=== PATIENT | female | born 1965 | race Caucasian/White ===

== ENCOUNTER 2021-10-22 07:31 | Outpatient (REF) | payer OTHER, SELFPAY ==
[2021-10-22 11:12] LABS: MANUAL DIFF FLAG NO
[2021-10-22 11:18] LABS: Basophils Percent Auto 0.7 % (0-2); Eosinophils Absolute Auto 0.2 X10*3/uL (0.0-0.4); Eosinophils Percent Auto 3.4 % (0-4); Hematocrit 40.9 % (37.0-47.0); Hemoglobin 13.4 g/dl (12.0-16.0); Imm Gran Abs Auto 0.01 X10*3/uL (0.00-0.03); Imm Gran Pct Auto 0.2 % (0.0-0.4); Lymphocytes Absolute Auto 1.7 X10*3/uL (1.2-4.9); Lymphocytes Percent Auto 28.4 % (20-40); Mean Corpuscular HGB Conc 32.8 g/dl (31.0-35.0); Mean Corpuscular Hemoglobin 29.1 pg (27.0-33.0); Mean Corpuscular Volume 88.9 fL (80.0-98.0); Mean Platelet Volume 11.6 fL (9.4-12.3); Monocytes Absolute Auto 0.4 X10*3/uL (0.1-1.2); Monocytes Percent Auto 6.4 % (2-11); Neutrophils Absolute Auto 3.6 x10*3/uL (2.0-8.3); Neutrophils Percent Auto 60.9 % (45-73); Platelet Count 205 X10*3/uL (160-400); Red Cell Distribution Width 13.2 % (11.0-16.0); White Blood Count 5.8 X10*3/uL (4.8-10.8)
[2021-10-22 11:31] LABS: Alanine Aminotransferase 14 U/L (0-31); Albumin Level 4.3 g/dL (3.5-5.0); Alkaline Phosphatase 54 U/L (39-117); Anion Gap 15 (12-20); Aspartate Amino Transferase 12 U/L (5-31); Bilirubin Total 0.7 mg/dL (0.0-1.0); Blood Urea Nitrogen 15 mg/dL (9-16); Calcium 9.2 mg/dL (8.4-10.2); Carbon Dioxide 24 mmol/L (22-29); Chloride 104 mmol/L (96-108); Cholesterol 242 mg/dL; Estimated Glomerular Filt Rate > 60; Glucose Fasting 92 mg/dL (60-99); HDL Cholesterol 71 mg/dL; LDL Cholesterol Calculated 154 mg/dl; Sodium 139 mmol/L (135-145); Total Protein 7.1 g/dL (6.5-8.0); Triglycerides 86 mg/dL
[2021-10-22 11:55] LABS: TSH reflex Free T4 2.25 uIU/mL (0.32-4.0)
== END 2021-10-22 07:32 | disposition home or self-care (01) ==
LOC: HO.HMGCLDS 07:31
PROVIDERS: Visit Provider Internal Medicine
DX: Z00.01 Encounter for general adult medical examination with abnormal findings (principal); G43.109 Migraine with aura, not intractable, without status migrainosus
CPT/HCPCS: 36415; 80053; 80061; 84443; 85025

== ENCOUNTER 2023-06-23 10:11 | Outpatient (AMB) | payer OTHER, SELFPAY ==
--- NOTE | 2023-06-23 10:15 | A.OFFPC_ITS ---
Vital Signs 06/23/23 10:18 Height 5 ft 7 in Weight 142 lb 2 oz BMI 22.3 BP 138/82 Blood Pressure Location Rt brachial Position Sitting Pulse 76 Pulse Source Pulse Oximeter Pulse Oximetry (%) 100 Oxygen Delivery Method Room Air Intake Visit Reasons: Annual PE Allergies none Allergy (Unknown, Uncoded 11/29/19 00:00) Medication List - Last Reconciled 06/23/23 by Amna Contreras MD magnesium oxide 400 mg PO DAILY nfjympgp-vqe-daazl acid-vit K 400-80 mcg caps PO sumatriptan succinate 50 mg PO DAILY PRN 90 days vitamin B complex (B-Complex tablet) 1 tab PO DAILY Tobacco use date assessed: 06/23/23 Dental Screening Dental Screen Date: 06/23/23 Did you have a dental visit in the last 12 months?: Yes Did you have a dental problem in the last 6 months where you did not have access to dental care?: No Was dental information given to patient?: Patient has dentist HPI Annual PE HPI Details Patient is a 57-year-old female came in today for physical examination Mammogram is up-to-date April of this year She has OBGYN Dr. Haley, [facility]. Pap smear is through them. Colonoscopy was when she was 53 years old 2019 at [facility] next 1 will be in 2028 Headaches are stable Tetanus is up-to-date Patient is complaining of feeling of something stuck in her throat which is constant and has been there for the past 2 months On examination there is no swelling no erythema in her throat However she tells me that she does feel that she has acid reflux. She also constantly clear her throat. We talked about dietary restrictions like avoiding spicy foods and avoiding alcohol altogether. I am starting her on omeprazole 20 mg she is to continue that for at least a month and then get back to me to update me. Other than that patient is healthy she exercise regularly however since the menopause she is having difficulty sleeping at least 2 times a week but she does not want to take any medications. Follow-up 1 year for physical exam, 4 weeks to update on throat problem PFSH Family History Other Mental health disorder Substance use disorder Social History Housing: Condominium Patient Tobacco Use Status: Never used Tobacco e-Cigarette/Vaping Use: Never Used Current occupational status: employed Cognitive needs: No Hearing needs: No Vision needs: No Questionnaire PHQ-9 Over the last 2 weeks, how often have you been bothered by any of the following problems? 1. Little interest or pleasure in doing things: not at all 2. Feeling down, depressed, or hopeless: not at all 3. Trouble falling or staying asleep, or sleeping too much: nearly every day 4. Feeling tired or having little energy: more than half the days 5. Poor appetite or overeating: not at all 6. Feeling bad about yourself - or that you are a failure or have let yourself or your family down: not at all 7. Trouble concentrating on things, such as reading the newspaper or watching television: not at all 8. Moving or speaking so slowly that other people could have noticed. Or the o pposite - being so fidgety or restless that you have been moving around a lot more than usual: not at all 9. Thoughts that you would be better off or of hurting yourself in some way: not at all Total score: 5 Depression Screening Interpretation: Negative 84457 - PHQ-9 Billing: Yes Source: Developed by Drs. Preston Landa, Carmencita Rowan, Parker Loyd and colleagues, with an educational tylor from [employer]. Thrive Questionnaire Date Thrive assessed: 09/29/21 I am a: Patient What is your living situation today?: I have a steady place to live Within the past 12 months, did the food you bought not last and you didn't have the money to get more?: Never true Within the past 12 months, did you worry whether your food would run out before you got money to buy more?: Never true Do you have trouble paying for medicines?: No Do you have trouble getting transportation to medical appointments?: No Do you have trouble paying your heating and electricity bill?: No Do you have trouble taking care of your child, family member or friend?: No Do you have trouble with day-to-day activities such as bathing, preparing meals, shopping, managing finances, etc.?: No Are you currently unemployed and looking for a job?: No Are you interested in more education?: No JULIETA-7 AMB Questionnaire JULIETA-7 Date JULIETA - 7 assessed: 06/23/23 Feeling nervous, anxious, or on edge: 0 = Not at all Not being able to stop or control worryin = Not at all Worrying too much about different things: 0 = Not at all Trouble relaxin = Not at all Being so restless that it is hard to sit still: 0 = Not at all Becoming easily annoyed or irritable: 1 = Several days Feeling afraid as if something awful might happen: 0 = Not at all Total JULIETA-7 score (0-4 normal; 5-9 mild; 10-14 moderate; 15-21 severe): 1 Source: Developed by Drs. Preston Landa, Carmencita Rowan, Parker Loyd and colleagues, with an educational tylor from [employer]. JULIETA-7 Assessment Billing JULIETA-7 Assessment Tool: JULIETA-7 Assessment 49554 Review of Systems Const Denies chills, Denies fever(s) and Denies headache(s) Eyes Denies blurry vision ENT Denies headache(s), Denies nasal discharge, Denies nasal obstruction, Denies odynophagia and Denies sinus pain Card Denies chest pain at rest and Denies chest pain with activity Resp Denies cough and Denies hemoptysis GI Denies diarrhea, Denies odynophagia, Denies vomiting and Denies hematemesis Reports as per HPI Musc Denies abnormal gait Skin/Breast Reports as per HPI Neuro Denies Neuro-related abnormal movements, Denies Abnormal speech present, Denies abnormal gait, Denies headache(s) and Denies Sensory deficit (Neuro) Psych Denies mood swings and Denies paranoia Endo Reports as per HPI Priyank/Lymph Reports as per HPI Aller/Immun Reports as per HPI Physical exam (Primary Care) Vital Signs: Last Vital Signs Pulse 76 06/23/23 10:18 BP 138/82 06/23/23 10:18 Pulse Ox 100 06/23/23 10:18 Oxygen Delivery Method Room Air 06/23/23 10:18 BMI result Body Mass Index 22.3 Tobacco/Smoking Status: Tobacco use Status Tobacco use date assessed 06/23/23 06/23/23 10:23 Patient Tobacco Use Status Never used Tobacco 06/23/23 10:23 e-Cigarette/Vaping Use Never Used 06/23/23 10:23 PHQ-9: PHQ-9 Score PHQ-9: Total score 5 06/23/23 10:53 Depression Screening Interpretation: Negative Thrive Assessment: Date of Thrive Assessment Date Thrive assessed 09/29/21 06/23/23 10:53 Const General: cooperative, comfortable and no acute distress Orientation/consciousness: patient oriented x3 HENMT Head: Yes normocephalic and Yes atraumatic Eyes General: appearance normal, both eyes and all related structures Pupils: Equal, round and reactive pupils present EOM: EOMs intact bilaterally Neck Neck: Yes supple and No lymphadenopathy Thyroid: Thyroid normal Lymphatic: no lymphadenopathy noted Resp Effort & Inspection: normal respiratory effort and able to speak in complete sentences Auscultation: clear to auscultation bilaterally Cardio Heart sounds: S1 normal heart sound present and S2 normal heart sound present GI Palpation (GI): Soft to palpation and nontender Auscultation: normal bowel sounds General: Yes no CVA tenderness Back/Spine/Pelvis Back: no CVA tenderness Skin General skin exam: elasticity normal and turgor normal Neuro General: patient oriented x3 and gait normal Cranial nerves: Yes Equal, round and reactive pupils present Speech: No Abnormal speech present Sensory Exam: No Sensory deficit (Neuro) Coordination: tandem gait normal and Romberg test negative Extrem General: Yes normal exam except as noted and No edema Assessment and Plan Assessment & Plan (1) Encounter for general adult medical examination with abnormal findings: Code(s): Z00.01 - Encounter for general adult medical examination with abnormal findings (2) Tired: Code(s): R53.83 - Other fatigue (3) Migraine headache with aura: Code(s): G43.109 - Migraine with aura, not intractable, without status migrainosus Qualifiers: Intractability: intractable Status migrainosus presence: without status migrainosus Qualified Code(s): G43.119 - Migraine with aura, intractable, without status migrainosus (4) Menopausal state: Code(s): N95.1 - Menopausal and female climacteric states (5) Difficulty sleeping: Code(s): G47.9 - Sleep disorder, unspecified (6) Difficulty swallowing: Code(s): R13.10 - Dysphagia, unspecified Qualifiers: Dysphagia type: oropharyngeal phase Qualified Code(s): R13.12 - Dysphagia, oropharyngeal phase Plan Patient is a 57-year-old female came in today for physical examination Mammogram is up-to-date April of this year She has OBGYN Dr. Haley, [facility]. Pap smear is through them. Colonoscopy was when she was 53 years old 2019 at [facility] next 1 will be in 2028 Headaches are stable Tetanus is up-to-date Patient is complaining of feeling of something stuck in her throat which is constant and has been there for the past 2 months On examination there is no swelling no erythema in her throat However she tells me that she does feel that she has acid reflux. She also constantly clear her throat. We talked about dietary restrictions like avoiding spicy foods and avoiding alcohol altogether. I am starting her on omeprazole 20 mg she is to continue that for at least a month and then get back to me to update me. Other than that patient is healthy she exercise regularly however since the menopause she is having difficulty sleeping at least 2 times a week but she does not want to take any medications. Follow-up 1 year for physical exam, 4 weeks to update on throat problem Orders: Orders Complete Blood Count Auto Diff Today G43.109 - Migraine with aura, not intractable, without status migrainosus, G47.9 - Sleep disorder, unspecified, N95.1 - Menopausal and female climacteric states, R53.83 - Other fatigue, Z00.01 - Encounter for general adult medical examination with abnormal findings Comprehensive [place]. Panel Fast Today G43.109 - Migraine with aura, not intractable, without status migrainosus, G47.9 - Sleep disorder, unspecified, N95.1 - Menopausal and female climacteric states, R53.83 - Other fatigue, Z00.01 - Encounter for general adult medical examination with abnormal findings Lipid Panel Today G43.109 - Migraine with aura, not intractable, without status migrainosus, G47.9 - Sleep disorder, unspecified, N95.1 - Menopausal and female climacteric states, R53.83 - Other fatigue, Z00.01 - Encounter for general adult medical examination with abnormal findings Vitamin D 25-OH (D2 and D3) Today G43.109 - Migraine with aura, not intractable, without status migrainosus, G47.9 - Sleep disorder, unspecified, N95.1 - Menopausal and female climacteric states, R53.83 - Other fatigue, Z00.01 - Encounter for general adult medical examination with abnormal findings Vitamin B12 Today G43.109 - Migraine with aura, not intractable, without status migrainosus, G47.9 - Sleep disorder, unspecified, N95.1 - Menopausal and female climacteric states, R53.83 - Other fatigue, Z00.01 - Encounter for general adult medical examination with abnormal findings TSH reflex Free T4 Today G43.109 - Migraine with aura, not intractable, without status migrainosus, G47.9 - Sleep disorder, unspecified, N95.1 - Menopausal and female climacteric states, R53.83 - Other fatigue, Z00.01 - Encounter for general adult medical examination with abnormal findings Medications: New omeprazole 20 mg PO DAILY 90 caps 0RF Refilled sumatriptan succinate 50 mg PO DAILY PRN 30 tabs 1RF migraine headache 90 days Coding Level of Care Code Est Pt Prev Care 40-64y(88363) Diagnoses Encounter for general adult medical examination with abnormal findings Z00.01 Tired R53.83 Intractable migraine with aura without status migrainosus G43.119 Intractability: intractable Status migrainosus presence: without status migrainosus Menopausal state N95.1 Difficulty sleeping G47.9 Oropharyngeal dysphagia R13.12 Dysphagia type: oropharyngeal phase Additional Codes JULIETA-7 Assessment Billing - JULIETA-7 Assessment Tool: JULIETA-7 Assessment [id number] ([id number])
[2023-06-23 10:18] VITALS: BP 138/82; PULSE 76; O2SAT 100; BMI 22.3
== END 2023-06-23 10:47 | disposition home or self-care (01) ==
PROVIDERS: PCP Internal Medicine; Visit Provider Internal Medicine
DX: Z00.01 Encounter for general adult medical examination with abnormal findings (principal); R53.83 Other fatigue; G43.119 Migraine with aura, intractable, without status migrainosus; N95.1 Menopausal and female climacteric states; G47.9 Sleep disorder, unspecified; R13.12 Dysphagia, oropharyngeal phase
CPT/HCPCS: 99396

== ENCOUNTER 2023-07-11 07:23 | Outpatient (REF) | payer OTHER, SELFPAY ==
[2023-07-11 11:33] LABS: MANUAL DIFF FLAG NO
[2023-07-11 11:52] LABS: Basophils Absolute Auto 0.1 X10*3/uL (0.0-0.2); Basophils Percent Auto 1.1 % (0-2); Eosinophils Absolute Auto 0.2 X10*3/uL (0.0-0.4); Eosinophils Percent Auto 4.5 % (0-4); Hematocrit 41.8 % (37.0-47.0); Hemoglobin 13.6 g/dl (12.0-16.0); Imm Gran Abs Auto 0.01 X10*3/uL (0.00-0.03); Imm Gran Pct Auto 0.2 % (0.0-0.4); Lymphocytes Absolute Auto 1.9 X10*3/uL (1.2-4.9); Lymphocytes Percent Auto 41.3 % (20-40); Mean Corpuscular HGB Conc 32.5 g/dl (31.0-35.0); Mean Corpuscular Hemoglobin 29.4 pg (27.0-33.0); Mean Corpuscular Volume 90.3 fL (80.0-98.0); Mean Platelet Volume 11.5 fL (9.4-12.3); Monocytes Absolute Auto 0.3 X10*3/uL (0.1-1.2); Neutrophils Absolute Auto 2.2 x10*3/uL (2.0-8.3); Neutrophils Percent Auto 46.9 % (45-73); Platelet Count 215 X10*3/uL (160-400); Red Blood Count 4.63 X10*6/uL (4.20-5.50); White Blood Count 4.7 X10*3/uL (4.8-10.8)
[2023-07-11 12:36] LABS: Alanine Aminotransferase 19 U/L (0-31); Albumin Level 4.3 g/dL (3.5-5.0); Alkaline Phosphatase 65 U/L (39-117); Anion Gap 14 (12-20); Aspartate Amino Transferase 16 U/L (5-31); Bilirubin Total 0.5 mg/dL (0.0-1.0); Blood Urea Nitrogen 14 mg/dL (9-16); Calcium 9.8 mg/dL (8.4-10.2); Carbon Dioxide 25 mmol/L (22-29); Chloride 105 mmol/L (96-108); Cholesterol 261 mg/dL (<200); Estimated Glomerular Filt Rate > 60; Glucose Fasting 84 mg/dL (60-99); HDL Cholesterol 76 mg/dL (>40); LDL Cholesterol Calculated 167 mg/dL (<100); Sodium 140 mmol/L (135-145); Total Protein 7.3 g/dL (6.5-8.0); Triglycerides 92 mg/dL (<150)
[2023-07-11 12:38] LABS: TSH reflex Free T4 2.96 uIU/mL (0.32-4.0)
[2023-07-11 12:46] LABS: Vitamin B12 631 pg/mL (200-900)
[2023-07-14 13:39] LABS: Vitamin D 25-OH, D2 <4 ng/mL; Vitamin D 25-OH, D3 39 ng/mL; Vitamin D 25-OH, Total 39 ng/mL (30-100)
== END 2023-07-11 07:24 | disposition home or self-care (01) ==
LOC: HO.HMGCLDS 07:23
PROVIDERS: PCP Internal Medicine; Visit Provider Internal Medicine
DX: Z00.01 Encounter for general adult medical examination with abnormal findings (principal); R53.83 Other fatigue; G43.109 Migraine with aura, not intractable, without status migrainosus; N95.1 Menopausal and female climacteric states; G47.9 Sleep disorder, unspecified
CPT/HCPCS: 36415; 80053; 80061; 82306; 82607; 84443; 85025

== ENCOUNTER 2024-07-12 09:52 | Outpatient (AMB) | payer OTHER, SELFPAY ==
--- NOTE | 2024-07-12 09:55 | MHC.PC.OV ---
Vital Signs 07/12/24 09:56 Height 5 ft 7 in Weight 135 lb 4 oz BMI 21.2 BP 138/86 Blood Pressure Location Lt brachial Position Sitting Pulse 71 Pulse Source Pulse Oximeter Pulse Oximetry (%) 98 Oxygen Delivery Method Room Air Intake Visit Reasons: Annual PE Allergies none Allergy (Unknown, Uncoded 07/12/24 09:56) Unknown Medication List - Last Reconciled 07/12/24 by Amna Contreras MD magnesium oxide 400 mg PO DAILY dqxsdhbd-hvt-xrrpa acid-vit K 400-80 mcg caps PO omeprazole 20 mg PO DAILY sumatriptan succinate 50 mg PO DAILY PRN 90 days vitamin B complex (B-Complex tablet) 1 tab PO DAILY Tobacco use date assessed: 07/12/24 Dental Screening Dental Screen Date: 07/12/24 Did you have a dental visit in the last 12 months?: Yes Did you have a dental problem in the last 6 months where you did not have access to dental care?: No Was dental information given to patient?: Patient has dentist HPI Annual PE HPI Details Patient is a 57-year-old female came in today for physical examination Mammogram is up-to-date Dr. Haley, her OBGYN has retired, she needs a new OBGYN Colonoscopy was when she was 53 years old 2019 at [facility] next 1 will be in 2028 Headaches are stable Tetanus is up-to-date Patient has changed her diet and her acid reflux has gotten better She does have a family history of high cholesterol, her LDL was 167 last year I have placed order for repeat labs fasting PFSH Family History Other Mental health disorder Substance use disorder Social History Housing: Condominium Patient Tobacco Use Status: Never used Tobacco e-Cigarette/Vaping Use: Never Used Current occupational status: employed Cognitive needs: No Hearing needs: No Vision needs: No Questionnaire PHQ-9 Over the last 2 weeks, how often have you been bothered by any of the following problems? 1. Little interest or pleasure in doing things: not at all 2. Feeling down, depressed, or hopeless: not at all 3. Trouble falling or staying asleep, or sleeping too much: several days 4. Feeling tired or having little energy: several days 5. Poor appetite or overeating: not at all 6. Feeling bad about yourself - or that you are a failure or have let yourself or your family down: not at all 7. Trouble concentrating on things, such as reading the newspaper or watching television: not at all 8. Moving or speaking so slowly that other people could have noticed. Or the opposite - being so fidgety or restless that you have been moving around a lot more than usual: not at all 9. Thoughts that you would be better off or of hurting yourself in some way: not at all Total score: 2 Depression Screening Interpretation: Negative Depression Screening Done: Yes 62137 - PHQ-9 Billing: Yes Source: Developed by Drs. Preston Landa, Carmencita Rowan, Parker Loyd and colleagues, with an educational tylor from [employer]. Thrive Questionnaire Date Thrive assessed: 07/12/24 I am a: Patient What is your living situation today?: I have a steady place to live Within the past 12 months, did the food you bought not last and you didn't have the money to get more?: Never true Within the past 12 months, did you worry whether your food would run out before you got money to buy more?: Never true Do you have trouble paying for medicines?: I choose not to answer this question Do you have trouble getting transportation to medical appointments?: No Do you have trouble paying your heating and electricity bill?: No Do you have trouble taking care of your child, family member or friend?: No Do you have trouble with day-to-day activities such as bathing, preparing meals, shopping, managing finances, etc.?: No Are you currently unemployed and looking for a job?: No Are you interested in more education?: I choose not to answer this question Please select the resources that you would like help with: None Currently or been in a relationship where the following occur: No concerns reported THRIVE Score: 0 AUDIT C Alcohol Use Questionnaire (AUDIT-C) 1. How often do you have a drink containing alcohol?: 2-4 times a month 2. How many drinks containing alcohol do you have on a typical day when you are drinking?: 1 or 2 3. How often do you have six or more drinks on one occasion?: Never Total Score: 2 Score Reviewed/Action Taken: Yes JULIETA-7 AMB Questionnaire JULIETA-7 Date JULIETA - 7 assessed: 07/12/24 Feeling nervous, anxious, or on edge: 0 = Not at all Not being able to stop or control worryin = Not at all Worrying too much about different things: 0 = Not at all Trouble relaxin = Not at all Being so restless that it is hard to sit still: 0 = Not at all Becoming easily annoyed or irritable: 0 = Not at all Feeling afraid as if something awful might happen: 0 = Not at all Total JULIETA-7 score (0-4 normal; 5-9 mild; 10-14 moderate; 15-21 severe): 0 Source: Developed by Drs. Preston Landa, Carmencita Rowan, Parker Loyd and colleagues, with an educational tylor from [employer]. JULIETA-7 Assessment Billing JULIETA-7 Assessment Tool: JULIETA-7 Assessment 47391 Review of Systems Const Denies chills, Denies fever(s) and Denies headache(s) Eyes Denies blurry vision ENT Denies headache(s), Denies nasal discharge, Denies nasal obstruction, Denies odynophagia and Denies sinus pain Card Denies chest pain at rest and Denies chest pain with activity Resp Denies cough and Denies hemoptysis GI Denies diarrhea, Denies odynophagia, Denies vomiting and Denies hematemesis Reports as per HPI Musc Denies abnormal gait Skin/Breast Reports as per HPI Neuro Denies Neuro-related abnormal movements, Denies Abnormal speech present, Denies abnormal gait, Denies headache(s) and Denies Sensory deficit (Neuro) Psych Denies mood swings and Denies paranoia Endo Reports as per HPI Priyank/Lymph Reports as per HPI Aller/Immun Reports as per HPI Physical exam (Primary Care) Vital Signs: Last Vital Signs Pulse 71 07/12/24 09:56 BP 138/86 07/12/24 09:56 Pulse Ox 98 07/12/24 09:56 Oxygen Delivery Method Room Air 07/12/24 09:56 BMI result Body Mass Index 21.2 Tobacco/Smoking Status: Tobacco use Status Tobacco use date assessed 07/12/24 07/12/24 09:59 Patient Tobacco Use Status Never used Tobacco 07/12/24 09:59 e-Cigarette/Vaping Use Never Used 07/12/24 09:59 PHQ-9: PHQ-9 Score PHQ-9: Total score 2 07/12/24 10:09 Depression Screening Interpretation: Negative Thrive Assessment: Date of Thrive Assessment Date Thrive assessed 07/12/24 07/12/24 09:59 Currently or been in a relationship where the following occur: No concerns reported Const General: cooperative, comfortable and no acute distress Orientation/consciousness: patient oriented x3 HENMT Head: Yes normocephalic and Yes atraumatic Eyes General: appearance normal, both eyes and all related structures Pupils: Equal, round and reactive pupils present EOM: EOMs intact bilaterally Neck Neck: Yes supple and No lymphadenopathy Thyroid: Thyroid normal Lymphatic: no lymphadenopathy noted Chest Breast/axilla palpation: normal palpation of the breasts Resp Effort & Inspection: normal respiratory effort and able to speak in complete sentences Auscultation: clear to auscultation bilaterally Cardio Heart sounds: S1 normal heart sound present and S2 normal heart sound present GI Palpation (GI): Soft to palpation and nontender Auscultation: normal bowel sounds General: Yes no CVA tenderness Back/Spine/Pelvis Back: no CVA tenderness Skin General skin exam: elasticity normal and turgor normal Neuro General: patient oriented x3 and gait normal Cranial nerves: Yes Equal, round and reactive pupils present Speech: No Abnormal speech present Sensory Exam: No Sensory deficit (Neuro) Coordination: tandem gait normal and Romberg test negative Extrem General: Yes normal exam except as noted and No edema Coding Level of Care Code Est Pt Level 3 (24704) Est Pt Prev Care 40-64y(65531) Diagnoses Encounter for general adult medical examination with abnormal findings Lipid disorder E78.9 Additional Codes JULIETA-7 Assessment Billing - JULIETA-7 Assessment Tool: JULIETA-7 Assessment 93132 ([id number]) Assessment & Plan Assessment & Plan (1) Encounter for general adult medical examination with abnormal findings: Code(s): Z00.01 - Encounter for general adult medical examination with abnormal findings Category: Medical (2) Lipid disorder: Code(s): E78.9 - Disorder of lipoprotein metabolism, unspecified Category: Medical Plan Patient is a 57-year-old female came in today for physical examination Mammogram is up-to-date Dr. Haley, her OBGYN has retired, she needs a new OBGYN Colonoscopy was when she was 53 years old 2019 at [facility] next 1 will be in 2028 Headaches are stable Tetanus is up-to-date Patient has changed her diet and her acid reflux has gotten better She does have a family history of high cholesterol, her LDL was 167 last year I have placed order for repeat labs fasting Orders: Orders Complete Blood Count Auto Diff Today E78.9 - Disorder of lipoprotein metabolism, unspecified, Z00.00 - Encounter for general adult medical examination without abnormal findings Lipid Panel Today E78.9 - Disorder of lipoprotein metabolism, unspecified, Z00.00 - Encounter for general adult medical examination without abnormal findings Comprehensive [place]. Panel Fast Today E78.9 - Disorder of lipoprotein metabolism, unspecified, Z00.00 - Encounter for general adult medical examination without abnormal findings Referrals [facility] Referral Z01.419 - Encounter for gynecological examination (general) (routine) without abnormal findings
[2024-07-12 09:56] VITALS: BP 138/86; PULSE 71; O2SAT 98; BMI 21.2
== END 2024-07-12 10:18 | disposition home or self-care (01) ==
PROVIDERS: PCP Internal Medicine; Visit Provider Internal Medicine
DX: Z00.00 Encounter for general adult medical examination without abnormal findings (principal); E78.9 Disorder of lipoprotein metabolism, unspecified

== ENCOUNTER → 2024-07-12 09:52 | Outpatient (BNVA) | payer OTHER, SELFPAY | PROVIDERS: PCP Internal Medicine; Visit Provider Internal Medicine | DX: Z00.01 Encounter for general adult medical examination with abnormal findings (principal); E78.9 Disorder of lipoprotein metabolism, unspecified | CPT/HCPCS: 96127 ==

== ENCOUNTER 2024-08-12 07:15 | Outpatient (REF) | payer OTHER, SELFPAY ==
[2024-08-12 10:02] LABS: MANUAL DIFF FLAG NO
[2024-08-12 10:29] LABS: Basophils Absolute Auto 0.1 X10*3/uL (0.0-0.2); Basophils Percent Auto 1.2 % (0-2); Eosinophils Absolute Auto 0.1 X10*3/uL (0.0-0.4); Eosinophils Percent Auto 3.1 % (0-4); Hematocrit 41.7 % (37.0-47.0); Hemoglobin 13.6 g/dl (12.0-16.0); Imm Gran Abs Auto 0.02 X10*3/uL (0.00-0.03); Imm Gran Pct Auto 0.5 % (0.0-0.4); Lymphocytes Absolute Auto 1.8 X10*3/uL (1.2-4.9); Lymphocytes Percent Auto 42.7 % (20-40); Mean Corpuscular HGB Conc 32.6 g/dl (31.0-35.0); Mean Corpuscular Hemoglobin 29.1 pg (27.0-33.0); Mean Corpuscular Volume 89.1 fL (80.0-98.0); Mean Platelet Volume 11.6 fL (9.4-12.3); Monocytes Absolute Auto 0.3 X10*3/uL (0.1-1.2); Neutrophils Percent Auto 46.5 % (45-73); Platelet Count 216 X10*3/uL (160-400); Red Blood Count 4.68 X10*6/uL (4.20-5.50); Red Cell Distribution Width 12.9 % (11.0-16.0); White Blood Count 4.2 X10*3/uL (4.8-10.8)
[2024-08-12 10:48] LABS: Alanine Aminotransferase 16 U/L (0-31); Albumin Level 4.2 g/dL (3.5-5.0); Alkaline Phosphatase 63 U/L (39-117); Anion Gap 10 (12-20); Aspartate Amino Transferase 18 U/L (5-31); Bilirubin Total 0.5 mg/dL (0.0-1.0); Blood Urea Nitrogen 16 mg/dL (9-16); Calcium 9.6 mg/dL (8.4-10.2); Carbon Dioxide 29 mmol/L (22-29); Chloride 107 mmol/L (96-108); Cholesterol 253 mg/dL (<200); Estimated Glomerular Filt Rate > 60; Glucose Fasting 93 mg/dL (60-99); HDL Cholesterol 75 mg/dL (>40); LDL Cholesterol Calculated 161 mg/dL (<100); Potassium 3.8 mmol/L (3.3-5.1); Sodium 142 mmol/L (135-145); Total Protein 6.9 g/dL (6.5-8.0); Triglycerides 86 mg/dL (<150)
== END 2024-08-12 07:16 | disposition home or self-care (01) ==
LOC: HO.HMGCLDS 07:15
PROVIDERS: PCP Internal Medicine; Visit Provider Internal Medicine
DX: Z00.00 Encounter for general adult medical examination without abnormal findings (principal); E78.9 Disorder of lipoprotein metabolism, unspecified
CPT/HCPCS: 36415; 80053; 80061; 85025

== ENCOUNTER 2025-08-15 09:48 | Outpatient (AMB) | payer OTHER, SELFPAY ==
[2025-08-15 09:51] VITALS: BP 118/72; PULSE 80; O2SAT 98; BMI 21.9
--- NOTE | 2025-08-15 09:51 | A.OFFPC_ITS ---
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: No Accompanied by: Self / Same As Patient Allergies none Allergy (Unknown, Uncoded 08/15/25 09:52) Unknown Medication List - Last Reconciled 08/15/25 by Amna Contreras MD magnesium oxide 400 mg PO DAILY chgeoxwg-axt-vfpca acid-vit K 400-80 mcg caps PO omeprazole 20 mg PO DAILY sumatriptan succinate 50 mg PO DAILY PRN 90 days vitamin B complex (B-Complex tablet) 1 tab PO DAILY Tobacco use date assessed: 08/15/25 Dental Screening Dental Screen Date: 08/15/25 Did you have a dental visit in the last 12 months?: Yes Did you have a dental problem in the last 6 months where you did not have access to dental care?: No Was dental information given to patient?: Patient has dentist HPI HPI Comments History of Present Illness Details History of Present Illness The patient is a 59 year old individual presenting for an annual physical exam. Hyperlipidemia: - The patient has a history of a lipid d isorder with a recent LDL level of 161 mg/dL. - There is a strong family history of pr emature cardiac-related deaths, including the patient's maternal grandfather who in his 50s. - The patient is hesitant to start jaye sterol medication despite prior discussion but has agreed to try taking fish oil. - The patient maintains a healthy diet, including a recent shift to a Mediterranean diet, and engages in regular exercise. Migraine: - The patient has a history of migraine headaches and uses sumatriptan as needed. - The frequency of use is approximately once a week. - The patient requested to continue fill ing the prescription to have it available if needed. Gastroesophageal Reflux Disease (GERD): - The patient has a history of GERD but has stopped taking omeprazole. - The patient now uses Tums as needed fo r symptoms. Tinnitus: - The patient reports persistent tinnitu s, which varies in intensity. - The patient attributes this to a histo ry of exposure to loud music at concerts. - The patient requested a referral for a hearing test. Medical History: - Migraine headaches - Gastroesophageal reflux disease (GERD) - Lipid disorder - Tinnitus - Arthritis of the knees ? Social History: - Alcohol use: Reports consuming 1-2 alc oholic drinks per week. - Diet: Reports eating healthy and has a dopted a Mediterranean diet. - Exercise: Walks every day and practice s yoga once a week. - Risk factors: Reports exposure to loud music from attending concerts, which is a possible cause of tinnitus. Health Maintenance - Last colonoscopy was in 2018, with the next one due in 2028. - Follows with [facility], Dr. Haley, and h as an appointment in September. - Mammogram performed in March was normal after additional imaging of the right breast. - The patient declined the influenza vac cine. - Referral made for a hearing test due t o tinnitus. - Counseled on hyperlipidemia management , including the option of medication and the use of fish oil supplements. - Advised to use mizw-fan-zfe headphones instead of in-ear headphones to prevent worsening tinnitus. - Advised to follow up in one year for a n annual physical exam. [place] of Care The patient sees Dr. Haley for [facility] care. PFSH Family History Other Mental health disorder Substance use disorder Social History Housing: Condominium Patient Tobacco Use Status: Never used Tobacco e-Cigarette/Vaping Use: Never Used Current occupational status: employed Cognitive needs: No Hearing needs: No Vision needs: No Questionnaire PHQ-9 Over the last 2 weeks, how often have you been bothered by any of the following problems? 1. Little interest or pleasure in doing things: not at all 2. Feeling down, depressed, or hopeless: not at all 3. Trouble falling or staying asleep, or sleeping too much: several days 4. Feeling tired or having little energy: not at all 5. Poor appetite or overeating: not at all 6. Feeling bad about yourself - or that you are a failure or have let yourself or your family down: not at all 7. Trouble concentrating on things, such as reading the newspaper or watching television: not at all 8. Moving or speaking so slowly that other people could have noticed. Or the opposite - being so fidgety or restless that you have been moving around a lot more than usual: not at all 9. Thoughts that you would be better off or of hurting yourself in some way: not at all Total score: 1 Depression Screening Interpretation: Negative Depression Screening Done: Yes 68730 - PHQ-9 Billing: Yes Source: Developed by Drs. Preston Landa, Carmencita Rowan, Parker Loyd and colleagues, with an educational tylor from [employer]. Thrive Questionnaire Date Thrive assessed: 08/15/25 I am a: Patient What is your living situation today?: I have a steady place to live Within the past 12 months, did the food you bought not last and you didn't have the money to get more?: Never true Within the past 12 months, did you worry whether your food would run out before you got money to buy more?: Never true Do you have trouble paying for medicines?: No Do you have trouble getting transportation to medical appointments?: No Do you have trouble paying your heating and electricity bill?: No Do you have trouble taking care of your child, family member or friend?: No Do you have trouble with day-to-day activities such as bathing, preparing meals, shopping, managing finances, etc.?: No Are you currently unemployed and looking for a job?: No Are you interested in more education?: Yes Please select the resources that you would like help with: None Currently or been in a relationship where the following occur: No concerns reported THRIVE Score: 0 AUDIT C Alcohol Use Questionnaire (AUDIT-C) 1. How often do you have a drink containing alcohol?: 2-4 times a month 2. How many drinks containing alcohol do you have on a typical day when you are drinking?: 1 or 2 3. How often do you have six or more drinks on one occasion?: Never Total Score: 2 Score Reviewed/Action Taken: Yes JULIETA-7 AMB Questionnaire JULIETA-7 Date JULIETA - 7 assessed: 08/15/25 Feeling nervous, anxious, or on edge: 0 = Not at all Not being able to stop or control worryin = Not at all Worrying too much about different things: 0 = Not at all Trouble relaxin = Not at all Being so restless that it is hard to sit still: 0 = Not at all Becoming easily annoyed or irritable: 1 = Several days Feeling afraid as if something awful might happen: 0 = Not at all Total JULIETA-7 score (0-4 normal; 5-9 mild; 10-14 moderate; 15-21 severe): 1 Source: Developed by Drs. Preston Landa, Carmencita Rowan, Parker Loyd and colleagues, with an educational tylor from [employer]. JULIETA-7 Assessment Billing JULIETA-7 Assessment Tool: JULIETA-7 Assessment 33018 Review of Systems Narrative Review of Systems - General: No fever no chills - Neurological: no dizziness - Ear nose throat: No sore throat no hearing difficulty no ear pain - Cardiovascular: No syncope, no chest pain, no palpitations - Gastrointestinal: No nausea vomiting or diarrhea - Endocrine: No polyuria polydipsia no heat intolerance - Genitourinary: No dysuria - Skin: No new complaints Physical exam (Primary Care) Vital Signs: Last Vital Signs Pulse 80 08/15/25 09:51 BP 118/72 08/15/25 09:51 Pulse Ox 98 08/15/25 09:51 BMI result Body Mass Index 21.9 Tobacco/Smoking Status: Tobacco use Status Tobacco use date assessed 08/15/25 08/15/25 09:52 Patient Tobacco Use Status Never used Tobacco 08/15/25 09:52 e-Cigarette/Vaping Use Never Used 08/15/25 09:52 PHQ-9: PHQ-9 Score PHQ-9: Total score 1 08/15/25 09:52 Depression Screening Interpretation: Negative Thrive Assessment: Date of Thrive Assessment Date Thrive assessed 08/15/25 08/15/25 09:52 Currently or been in a relationship where the following occur: No concerns reported Narrative Physical Exam General: Cooperative, healthy appearing, comfortable, no acute distress Orientation: Patient oriented x3 Limitations: none Head: Normal to inspection Ears: Within normal limit visually, patient reports tinnitus Nose: Normal external nose present Face and sinus: Normal facial exam Eyes: Appearance normal, extraocular movement intact pupils reactive Neck: Normal visual inspection and supple Respiratory: Normal respiratory effort and able to speak in complete sentences. Clear to auscultation, no stridor Cardiovascular: S1 and S2 RRR Breast exam thru Obgyn GI: Normal to inspection. Soft to palpation and nontender Skin: Turgor normal, no acute findings Neuro: Patient oriented x3, motor sensory intact, balance intact, tandem pass Extremities: Normal to inspection, possible early arthritis in knees due to sports history . Coding Level of Care Code Est Pt Level 3 (12574) Est Pt Prev Care 40-64y(91617) Diagnoses Encounter for general adult medical examination with abnormal findings Z00.01 Intractable migraine with aura without status migrainosus G43.119 Intractability: intractable Status migrainosus presence: without status migrainosus Lipid disorder E78.9 Hearing difficulty, unspecified laterality H91.90 Laterality: unspecified laterality Family history of early CAD Z82.49 Additional Codes JULIETA-7 Assessment Billing - JULIETA-7 Assessment Tool: JULIETA-7 Assessment 73099 ([id number]) PHQ-9 - 40725 - PHQ-9 Billing: Yes ([id number]) Assessment & Plan Assessment & Plan (1) Encounter for general adult medical examination with abnormal findings: Code(s): Z00.01 - Encounter for general adult medical examination with abnormal findings Category: Medical (2) Migraine headache with aura: Code(s): G43.109 - Migraine with aura, not intractable, without status migrainosus Category: Medical Qualifiers: Intractability: intractable Status migrainosus presence: without status migrainosus Qualified Code(s): G43.119 - Migraine with aura, intractable, without status migrainosus (3) Lipid disorder: Code(s): E78.9 - Disorder of lipoprotein metabolism, unspecified Category: Medical (4) Hearing difficulty: Code(s): H91.90 - Unspecified hearing loss, unspecified ear Category: Medical Qualifiers: Laterality: unspecified laterality Qualified Code(s): H91.90 - Unspecified hearing loss, unspecified ear (5) Family history of early CAD: Code(s): Z82.49 - Family history of ischemic heart disease and other diseases of the circulatory system Category: Medical Plan Patient Instructions - An order has been placed for blood tests to check your cholesterol. Please have this done soon. - Consider taking a daily medication for high cholesterol due to your levels and family history. Please let me know if you decide to start treatment. - As an alternative to prescription medication, you can start taking an bfrj-bkq-enokilx fish oil supplement. Follow the directions on the bottle. - A referral was provided for a hearing test to evaluate your tinnitus. Please call the number given to schedule an appointment. - To protect your hearing, it is better to use headphones that go over your head instead of earbuds that go inside your ear. - You can view your lab results and compare your cholesterol levels through your online patient chart. - Please return in one year for your next physical exam. Orders: Orders Comprehensive [place]. Panel Fast Today E78.9 - Disorder of lipoprotein meta bolism, unspecified, G43.119 - Migraine with aura, intractable, without status migrainosus, Z00.01 - Encounter for general adult medical examination with abnormal findings Lipid Panel Today E78.9 - Disorder of lipoprotein metabolism, unspecified, G43.119 - Migraine with aura, intractable, without status migrainosus, Z00.01 - Encounter for general adult medical examination with abnormal findings Complete Blood Count Auto Diff Today E78.9 - Disorder of lipoprotein metabolism, unspecified, G43.119 - Migraine with aura, intractable, without sta tus migrainosus, Z00.01 - Encounter for general adult medical examination with abnormal findings Referrals Audiology Referral H91.90 - Unspecified hearing loss, unspecified ear Medications: Refilled sumatriptan succinate 50 mg PO DAILY PRN 30 tabs 0RF migraine headache 90 days Discontinued omeprazole Discontinued Reason: Doctor's Order 20 mg PO DAILY 90 caps 0RF
== END 2025-08-15 10:18 | disposition home or self-care (01) ==
LOC: HO.HMCC 09:49
PROVIDERS: PCP Internal Medicine; Visit Provider Internal Medicine
DX: Z00.01 Encounter for general adult medical examination with abnormal findings (principal); G43.119 Migraine with aura, intractable, without status migrainosus; E78.9 Disorder of lipoprotein metabolism, unspecified; H91.90 Unspecified hearing loss, unspecified ear; Z82.49 Family history of ischemic heart disease and other diseases of the circulatory system

== ENCOUNTER → 2025-08-15 09:48 | Outpatient (BNVA) | payer OTHER, SELFPAY | PROVIDERS: PCP Internal Medicine; Visit Provider Internal Medicine | DX: Z00.01 Encounter for general adult medical examination with abnormal findings (principal); E78.5 Hyperlipidemia, unspecified; G43.909 Migraine, unspecified, not intractable, without status migrainosus; K21.9 Gastro-esophageal reflux disease without esophagitis; H93.19 Tinnitus, unspecified ear; G43.119 Migraine with aura, intractable, without status migrainosus; H91.90 Unspecified hearing loss, unspecified ear; Z82.49 Family history of ischemic heart disease and other diseases of the circulatory system | CPT/HCPCS: 96127; 99396 ==